=== PATIENT | female | born 1940 | race Caucasian/White ===

== ENCOUNTER 2020-11-28 18:51 | Observation (INO) | payer MEDICARE, SELFPAY ==
--- NOTE | ~2020-11-28 | XR_ITS ---
EXAMINATION: XR chest 2V DATE: 11/28/2020 19:23 INDICATION: Source of breath and chest pain. TECHNIQUE: frontal and lateral views of the chest were obtained. COMPARISON: Chest radiograph dated 11/18/2014 FINDINGS: The lungs remain clear with no focal airspace opacities, pulmonary edema, pleural effusion or pneumot horax. The cardiomediastinal silhouette is normal. Median sternotomy wires and mediastinal surgical c lips are seen, likely from prior coronary artery bypass grafting. There is also coronary artery bypas s grafting. Aortic valve replacement. Moderate thoracic spondylosis. IMPRESSION: 1. No acute cardiopulmonary disease. Reviewed, dictated and finalized at location A.
--- NOTE | 2020-11-28 18:58 | ECG_ITS ---
Measurements Intervals [place] Rate: 108 P: [place]: 0 QRS: -43 QRSD: 146 T: 72 QT: 370 QTc: 498 Interpretive Statements ATRIAL FIBRILLATION WITH RAPID VENTRICULAR RESPONSE LEFT AXIS DEVIATION LEFT BUNDLE BRANCH BLOCK ANTEROSEPTAL INFARCT OR DUE TO LBBB BASELINE WANDER- V3 ABNORMAL ECG Electronically Signed On 11-28-2020 20:14:29 CDT by Vinnie Frye D.O.
[2020-11-28 19:19] LABS: Basophils Percent Auto 0.5 % (0.2-1.2); Eosinophils Absolute Auto 0.2 K/mm3 (0-0.3); Hematocrit 39.3 % (37.0-47.0); Hemoglobin 12.6 g/dL (12.0-15.0); Immature Granulocyte Absolute 0.02 K/mm3 (0.00-0.031); Immature Granulocyte Percent A 0.3 % (0-0.5); Lymphocytes Absolute Auto 1.11 K/mm3 (0.9-3.2); Lymphocytes Percent Auto 19.3 % (18.3-44.2); Mean Corpuscular HGB Conc 32.1 g/dl (32-36); Mean Corpuscular Hemoglobin 28.5 pg (26-34); Mean Corpuscular Volume 88.9 fl (80-100); Mean Platelet Volume 9.5 fl (7.4-10.4); Monocytes Absolute Auto 0.9 K/mm3 (0.1-0.6); Monocytes Percent Auto 14.8 % (2.6-8.5); Neutrophils Absolute Auto 3.5 K/mm3 (1.3-6.7); Neutrophils Percent Auto 61.1 % (45.5-73.1); Platelet Count Result 261 k/mm3 (150-375); Red Blood Count 4.42 M/mm3 (4.2-5.4); White Blood Count 5.7 K/mm3 (4.5-10.0)
[2020-11-28 19:28] LABS: Anion Gap 8 mmol/L (8-16); Blood Urea Nitrogen 19 mg/dL (7-17); Carbon Dioxide 24 mmol/L (22-30); Chloride 104 mmol/L (98-107); Estimated Glomerular Filt Rate > 60; Glucose 136 mg/dL (65-110); Potassium 4.1 mmol/L (3.4-5.0); Sodium 136 mmol/L (137-145)
[2020-11-28 19:29] VITALS: BP 149/99; PULSE 97; RESP 18; TEMP 37; O2SAT 97
[2020-11-28 22:06] VITALS: BP 148/97; PULSE 102; RESP 20; O2SAT 100
[2020-11-29] VITALS (11 sets, daily range): BP systolic 136–178; BP diastolic 72–100; PULSE 65–82; RESP 16–27; TEMP 36.1–36.6; O2SAT 98–100; BMI 32.8
--- NOTE | 2020-11-29 00:06 | ECG_ITS ---
Measurements Intervals [place] Rate: 65 P: 27 [place]: 181 QRS: -29 QRSD: 146 T: 70 QT: 470 QTc: 492 Interpretive Statements SINUS RHYTHM POSSIBLE LEFT ATRIAL ENLARGEMENT LEFT BUNDLE BRANCH BLOCK ANTEROSEPTAL INFARCT OR DUE TO LBBB BASELINE ARTIFACT- I, III, AVL ABNORMAL ECG Electronically Signed On 11-29-2020 6:18:59 CDT by Vinnie Frye D.O.
--- NOTE | 2020-11-29 01:02 | ED.GENADULT ---
HPI - General Adult General Chief complaint: Shortness of Breath/Dyspnea Stated complaint: SOB, irregular HR, CP Time Seen by Provider: 11/28/20 23:56 History of Present Illness HPI narrative: Patient is a 80-year-old female presents the emergency department with chief complaint of palpitations. The patient reports that today she noticed that her heart was beating irregular and that she had a little bit of shortness of breath and some discomfort in her chest. The patient states that she has no prior history of A. fib reports she does have a extensive cardiac history and is has had bypass before in the past and a stent placement. Patient reports that she is feeling a little better right now and feels that her heart is improved on its rhythm. Patient does report that earlier this week she had a cough and has had a fever at home but has not had a fever for the last 2 days. She had a outpatient Covid test that was done yesterday and this is still pending at this time. Related Data Allergies Allergy/AdvReac Type Severity Reaction Status Date / Time clavulanic acid Allergy Mild Rash Verified 03/22/18 08:57 grapefruit Allergy Mild Rash Verified 03/22/18 08:57 wool Allergy Mild RASH Verified 03/22/18 08:57 amoxicillin Allergy Unknown Verified 02/09/16 10:35 Review of Systems Review of Systems: A 10 system review of systems was completed on the patient and is negative except for what is stated in the HPI. Nursing and ancillary documentation was reviewed. [facility] Family History Family History Other Family history of congenital heart disease Social History Social History Smoking status: Never smoker Alcohol intake: never Exam Narrative: GENERAL: Well-appearing, well-nourished, and in no acute distress. HEAD: Normocephalic, atraumatic. EYES: PERRLA and EOMI. ENT: Nares clear, no rhinorrhea or epistaxis. Mucous membranes moist. NECK: Supple. CHEST: Clear to auscultation. No respiratory distress. HEART: Regular rate and rhythm. No murmur heard. Normal peripheral pulses. ABDOMEN: Soft, nontender, nondistended, normal active bowel sounds. EXTREMITIES: Normal range of motion. No edema. SKIN: Warm, dry, no rash. NEURO: No focal deficits. Alert and oriented x3. PSYCH: Normal mood and affect. Course Course Emergency Course: EKG shows atrial fibrillation with a left bundle branch block and a rate of 108 Repeat EKG shows sinus rhythm with a rate of 65. There is a left bundle branch block Vital Signs Vital signs: Vital Signs Temperature 37.0 C 11/28/20 19:29 Pulse Rate 97 11/28/20 19:29 Respiratory Rate 18 11/28/20 19:29 Blood Pressure 149/99 H 11/28/20 19:29 Pulse Oximetry 97 11/28/20 19:29 Temperature 37.0 C 11/28/20 19:29 Pulse Rate 67 11/29/20 01:20 Respiratory Rate 27 H 11/29/20 01:20 Blood Pressure 157/83 H 11/29/20 01:20 Pulse Oximetry 100 11/29/20 01:20 Medical Decision Making Vital Signs Vital Signs: Vital Signs Temperature 37.0 C 11/28/20 19:29 Pulse Rate 97 11/28/20 19:29 Respiratory Rate 18 11/28/20 19:29 Blood Pressure 149/99 H 11/28/20 19:29 Pulse Oximetry 97 11/28/20 19:29 Temperature 37.0 C 11/28/20 19:29 Pulse Rate 67 11/29/20 01:20 Respiratory Rate 27 H 11/29/20 01:20 Blood Pressure 157/83 H 11/29/20 01:20 Pulse Oximetry 100 11/29/20 01:20 Lab Data Result diagrams: 11/28/20 19:12 11/28/20 19:12 Labs: Lab Results 11/28/20 11/28/20 11/28/20 Range/Units 19:10 19:10 19:12 WBC 5.7 (4.5-10.0) K/mm3 RBC 4.42 (4.2-5.4) M/mm3 Hgb 12.6 (12.0-15.0) g/dL Hct 39.3 (37.0-47.0) % MCV 88.9 (80-100) fl MCH 28.5 (26-34) pg MCHC 32.1 (32-36) g/dl RDW 13.0 (11.5-14.5) % Plt Count 261 (150-375) k/mm3 MPV 9.5 (7.4-10.4) fl Immature
[2020-11-29 01:23] LABS: INR 0.9; Prothrombin Time 12.1 Seconds (11.1-14.7)
[2020-11-29 01:24] LABS: Alanine Aminotransferase 41 U/L (4-35); Albumin Level 3.8 g/dL (3.5-5.1); Alkaline Phosphatase 133 U/L (38-126); Aspartate Amino Transferase 39 U/L (14-36); Bilirubin,Total 0.3 mg/dL (0.2-1.3); Partial Thromboplastin Time 35.7 SECONDS (22.3-36.8)
[2020-11-29 01:40] LABS: Troponin I 0.082 ng/mL (0.000-0.034)
[2020-11-29 01:46] LABS: NT Pro B Type Natriuretic Pept 733 pg/mL (5-100)
[2020-11-29 01:54] LABS: Troponin I 0.084 ng/mL (0.000-0.034)
[2020-11-29] MEDS: ASPIRIN 81 MG CHEWABLE TABLET 324 MG PO (02:24)
[2020-11-29] MEDS: ENOXAPARIN 80 MG/0.8 ML SYRINGE SUB-Q (02:24)
[2020-11-29 07:56] LABS: Troponin I 0.091 ng/mL (0.000-0.034)
--- NOTE | 2020-11-29 09:47 | PC.NURSE ---
This patient, Maricruz Peoples, was admitted to IMU Room 214-01. Patient/family oriented to hospital policies and general routines including ID bracelet, bed and alarms, visiting hours, pain management, procedures, bathroom and other care routines, personal items, smoking policy, room service/diet, and visiting hours. Information on how to activate the Rapid Response Team has been discussed. Patient/Family are encouraged to report perceived risks to care and to ask questions if they do not understand what they are told or what they should do.
--- NOTE | 2020-11-29 10:42 | PM.CNCAR ---
Assessment and Plan Assessment and plan (1) Atrial fibrillation: Qualifiers: Atrial fibrillation type: unspecified Qualified Code(s): I48.91 - Unspecified atrial fibrillation Code(s): I48.91 - Unspecified atrial fibrillation Status: Acute Assessment and Plan: New onset of atrial fibrillation with a mildly increased heart rate, probably fairly well controlled because she is already taking metoprolol. Likely due to age, history of heart disease and hypertension. Has converted to sinus rhythm spontaneously. Discussed with patient and her daughter, Nickie, atrial fibrillation, risk of recurrence, treatment, risk of cardioembolic events, anticoagulation, evaluation etc.. has atrial fibrillation and takes Xarelto Check TSH Okay for discharge today. Increase metoprolol from 50 mg b.i.d. to 75 mg b.i.d.. Okay to take an extra metoprolol 50 mg p.r.n. for palpitations. Change aspirin to Xarelto 20 mg daily. Will arrange for an outpatient echo, monitoring and office visit in the near future. Patient will call if she has further problems. (2) Elevated troponin: Code(s): R77.8 - Other specified abnormalities of plasma proteins Status: Acute Assessment and Plan: Mild flat troponin elevation due to history of CAD, and recent AFib RVR. Evaluation as above, no evidence of ACS or [place]. (3) CAD (coronary artery disease): Code(s): I25.10 - Atherosclerotic heart disease of [place] coronary artery without angina pectoris Status: Acute Assessment and Plan: CAD status post CABG, stable. (4) Aortic valve replaced: Code(s): Z95.2 - Presence of prosthetic heart valve Status: Acute Assessment and Plan: History of bioprosthetic aortic valve replacement, normal-sounding prosthetic valve. (5) Hypertension: Code(s): I10 - Essential (primary) hypertension Status: Acute Assessment and Plan: BP running a little high today. (6) Hyperlipidemia: Code(s): E78.5 - Hyperlipidemia, unspecified Status: Acute Assessment and Plan: Taking atorvastatin. (7) Fever: Code(s): R50.9 - Fever, unspecified Status: Acute Assessment and Plan: Recent fever and cough. COVID screen is still pending but patient is oxygenating well and does not look ill. History of Present Illness History of Present Illness Consult date/time: 11/29/20 10:42 Consult reason: atrial fibrillation Reason For Visit: Atrial fibrillation, chest pain, elevated troponin Narrative: Date of service 11/29/2020 Maricruz Peoples is a 80-year-old female whom I was asked to see at the request of the hospitalist for my advice and opinion regarding her new onset of atrial fibrillation in consultation. Ms Peoples was vacationing in or the [place] again in her CABG in 2 weeks ago. About a week ago she started having a cough, congestion and fevers up to 101.5? for 3 days. She did a home COVID test which was negative. Last night while sitting down for dinner she felt strange, noted her heart was beating, felt lightheaded, uncomfortable, a little short of breath. She came to the emergency room was found to have atrial fibrillation with a mildly increased heart rate response 102-108 beats per minute. After couple of hours, she spontaneously converted to sinus rhythm and has been feeling well since then. The patient is usually seen by for history of CAD and CABG in 2018 (MCKEON to the Left anterior descending, SVG to the OM and SVG to the PDA). At the time she had an aortic valve replacement because of aortic stenosis with a 21 mm magna pericardial tissue valve and septal myomectomy. She has a postop AFib which resolved. She has history of hypertension and hype
[2020-11-29] MEDS: hydroCHLOROthiazide 25 MG TABLET PO (13:23)
[2020-11-29] MEDS: METOPROLOL TARTRATE 25 MG TABLET 75 MG PO (13:23)
[2020-11-29] MEDS: LOSARTAN POTASSIUM 50 MG TABLET PO (13:23)
[2020-11-29] MEDS: RIVAROXABAN 20 MG TABLET PO (16:32)
--- NOTE | 2020-11-29 17:06 | PM.DS ---
DS: Admitting Diagnosis Admitting Diagnosis Chest Palpitations DS: Discharge Diagnosis Discharge Diagnosis (1) Atrial fibrillation: Qualifiers: Atrial fibrillation type: unspecified Qualified Code(s): I48.91 - Unspecified atrial fibrillation Code(s): I48.91 - Unspecified atrial fibrillation Status: Acute DS: Summary Hospital Course Reason for hospitalization: Heart palpitations Hospital Course: Patient is a 80-year-old female with past medical history CAD including CABG in 2018 and prior aortic valve replacement secondary to aortic stenosis which was complicated by postop AFib which resolved without therapy, presenting to hospital 11-28 for heart palpitations. Rhythm monitor showing AFib with heart rate in the 100s. Troponins elevated but flat 0.08, 0.08, 0.09. Seen by manufacturing process technician who recommended increasing metoprolol dose from 50 to 75 and giving additional prescription for 50 metoprolol p.r.n. when palpitations occur. While in house, was given Lovenox, which was changed to Xarelto upon discharge. Close follow-up with Cardiology and primary care within 1-2 weeks. Remaining medications unchanged, including statin HCTZ losartan. Discussed with patient in detail, she feels comfortable going home. Status at Discharge Functional status at discharge: independent ambulation Overall status at discharge: patient is progressing back to baseline Time Spent with Patient Time attestation: Total time spent providing and/or coordinating discharge services: 30 minutes Exam Const: General: no acute distress Limitations: no limitations and No altered mental status HENMT: Ears: TM's normal bilaterally Mouth: Yes moist mucous membranes and No dry mucous membranes Eyes: Sclera: sclerae normal and normal sclerae Neck: Neck: supple and No no JVD Resp: Effort & Inspection: normal respiratory effort Auscultation: clear to auscultation bilaterally, no crackles, no rales and lung sounds not diminished Cardio: Rate: abnormal rate Rhythm: abnormal rhythm and abnormal rhythm Heart sounds: Gallop heart sound present GI: Inspection: non-distended GI Palp: Yes Soft to palpation, No Firmness to palpation present (GI), No Tenderness to palpation present (GI) and No Guarding due to palpation present (GI) Percussion: Yes normal to percussion Auscultation: normal bowel sounds and bowels sounds normal Skin: General skin exam: normal color and no rashes or lesions noted Neuro: General: gait normal Motor exam (neuro): Normal motor muscle tone present throughout DS: Data Data Completed and Pending Labs on day of discharge: Labs from last 24 hours 11/29/20 11/29/20 11/29/20 06:31 06:26 03:12 WBC RBC Hgb Hct MCV MCH MCHC RDW Plt Count MPV Immature Gran % (Auto) Neut % (Auto) Lymph % (Auto) [place] % (Auto) Eos % (Auto) Baso % (Auto) Lymph # (Auto) [place] # (Auto) Eos # (Auto) Baso # (Auto) Abs Immat Gran (auto) Absolute Neuts (auto) Absolute Nucleated RBC Nucleated RBC % PT INR APTT Sodium Potassium Chloride Carbon Dioxide Anion Gap BUN Creatinine Estim Creat Clear Calc Estimated GFR Glucose Calcium Total Bilirubin Direct Bilirubin AST ALT Alkaline Phosphatase Troponin I 0.091 H* NT-Pro-B Natriuret Pep Total Protein Albumin TSH 4.630 SARS-CoV-2 RNA (RT-PCR) Pending 11/29/20 11/29/20 11/28/20 01:17 01:17 19:12 WBC RBC Hgb Hct MCV MCH MCHC RDW Plt Count MPV Immature Gran % (Auto) Neut % (Auto) Lymph % (Auto) [place] % (Auto) Eos % (Auto) Baso % (Auto) Lymph # (Auto) [place] # (Auto) Eos # (Auto) Baso # (Auto) Abs Immat Gran (auto) Absolute Neuts (auto) Absolute Nucleated RBC Nucleated RBC % PT INR APTT Sodium 136 L Potassium 4.1 Chloride 104
--- NOTE | 2020-11-29 17:28 | PM.IMHP ---
H&P: HPI History of Present Illness Date/Time: 11/29/20 11:28 Chief Complaint: Heart palpitations Narrative: Patient is a 80-year-old lady with CAD history presenting with approximately 1 week apart palpitations, history of CAD including CABG and aortic valve replacement. Has been feeling chest discomfort and palpitations for the last week or so, does not recall having symptoms of this severity in the past, no significant chest pain, or vomiting, and endorses some mild nausea. Past medical history: CAD prior history of atrial fibrillation Allergies: Clavulanic acid grapefruit wall of oxacillin Medications: Metoprolol, losartan, aspirin Family history: Underwear major medical problems running in family Social history: No significant drug alcohol or tobacco use Surgeries: History of CABG, and aortic valve replacement ER course: Found to be in atrial fibrillation, with tachycardia to 100s Troponin elevation to 0.08 Physicals exam otherwise unremarkable Review of Systems Review of Systems: All systems reviewed & are unremarkable except as noted in HPI and below Cardiovascular: Cardiovascular: Denies chest pain at rest, Denies chest pain with activity, Denies diaphoresis, Reports rapid heart rate and Reports irregular heart rhythm Respiratory: Respiratory: Denies hemoptysis, Denies excessive phlegm production, Denies pain on inspiration and Denies dyspnea Gastrointestinal: Gastrointestinal: Denies abdominal pain, Denies melena, Denies bloating, Denies hematochezia, Denies tenesmus, Denies change in stool character, Denies GI cramping and Denies dysphagia Musculoskeletal: Musculoskeletal: Denies abnormal gait, Denies back pain, Denies arthralgias, Denies joint swelling, Denies loss of height and Denies muscle cramps Neurologic: Denies behavioral changes, Denies headache(s) and Denies lack of coordination [facility] Past Medical History Medical History (Updated 11/29/20 @ 11:52 by Aliza Rodriguez MD) CAD (coronary artery disease) Hyperlipidemia Hypertension PAT (paroxysmal atrial tachycardia) Brief PSVT up to 20 beats noted in the past Surgical History Surgical History (Updated 11/29/20 @ 11:45 by Aliza Rodriguez MD) Aortic valve replaced 21 mm magna pericardial tissue valve with septal myomectomy by Dr. Sebastian and [facility] August 2017 Hx of CABG 10/[address] Sebastian I [facility]. MCKEON to the Left anterior descending, SVG to OM, SVG to PDA. Family History Family History (Updated 11/29/20 @ 11:46 by Aliza Rodriguez MD) Sibling Hx of CABG Diabetes mellitus Peripheral vascular disease Sibling Hx of CABG Mother Hypertension Heart disease cad Father Cardiac arrest Coded during open heart surgery after prior cardiac cath CAD (coronary artery disease) Other Family history of congenital heart disease Social History Social History (Updated 11/29/20 @ 11:47 by Aliza Rodriguez MD) Social History: , daughter a physician, going into family medicine. Smoking status: Never smoker Alcohol intake: never Substance use: never Spiritual care concerns: No Meds Home Medications and Allergies Home Medications Medication Instructions Recorded Confirmed Type Adults Multivitamin 1 tablet PO DAILY 11/29/20 11/29/20 History atorvastatin 80 mg PO HS 11/29/20 11/29/20 History calcium carbonate-vitamin D3 1 tablet PO DAILY 11/29/20 11/29/20 History hydrochlorothiazide 25 mg PO DAILY 11/29/20 11/29/20 History loperamide 1 mg PO DAILY 11/29/20 11/29/20 History losartan 50 mg PO DAILY 11/29/20 11/29/20 History metoprolol tartrate 50 mg PO DAILY PRN #30 tablet 11/29/20 Rx metoprolol tartrate 75 mg PO Q12HR #60 tablet 11/29/20 Rx rivaroxaban [Xarelto] 20 mg PO DAILY@1700 #60 tablet 11/29/20 Rx Allergies Allergy/AdvReac Type Severity Reaction Status Date / Time clavulanic acid Allergy Mild Rash Verified 11/29/20 09:37 grapefruit Allergy Mild R
[2020-11-29 17:52] LABS: SARS-CoV-2 RNA PCR Negative
== END 2020-11-29 18:05 | disposition home or self-care (01) ==
LOC: ANHED 11-29 02:04 → ANHIMU 11-29 17:05
PROVIDERS: Emergency Medicine; Internal Medicine Cardiovascular Disease; Admitting Provider Internal Medicine; Emergency Provider Emergency Medicine; PCP Family Medicine Adolescent Medicine; Visit Provider Internal Medicine
DX: I48.91 Unspecified atrial fibrillation (principal); R07.9 Chest pain, unspecified; R77.8 Other specified abnormalities of plasma proteins; R06.02 Shortness of breath; I25.10 Atherosclerotic heart disease of native coronary artery without angina pectoris; I10 Essential (primary) hypertension; E78.5 Hyperlipidemia, unspecified; R50.9 Fever, unspecified; I47.1 Supraventricular tachycardia; Z95.1 Presence of aortocoronary bypass graft; Z95.2 Presence of prosthetic heart valve; Z20.822 Contact with and (suspected) exposure to COVID-19
CPT/HCPCS: 36415; 71046; 80048; 80076; 83880; 84443; 84484; 85025; 85610; 85730; 93005; 96372; 99285; A9270; C9803; G0378; J1650; U0003; U0005

== ENCOUNTER 2020-12-16 01:02 | Day surgery (SDC) | payer MEDICARE, SELFPAY ==
[2020-12-15 12:37] VITALS: BMI 32.1
[2020-12-16] VITALS (16 sets, daily range): BP systolic 105–135; BP diastolic 60–94; PULSE 62–125; RESP 16–34; TEMP 35.9–36.6; O2SAT 91–98; BMI 32.9
--- NOTE | 2020-12-16 10:00 | ECG_ITS ---
Measurements Intervals [place] Rate: 109 P: [place]: 0 QRS: -54 QRSD: 145 T: 68 QT: 374 QTc: 504 Interpretive Statements ATRIAL FIBRILLATION WITH RAPID VENTRICULAR RESPONSE LEFT AXIS DEVIATION LEFT BUNDLE BRANCH BLOCK ABNORMAL ECG Electronically Signed On 12-16-2020 10:46:58 CDT by Vinnie Frye D.O.
--- NOTE | 2020-12-16 10:15 | SUR.PREOP ---
ARRIVES TO [facility] 4 VIA WC FOR SCHEDULED KATHARINA/CV W/ DR. GONZALEZ. DENIES PAIN ON ARRIVAL. REPORTS SOME MALLOY. ORIENTED TO ROOM, POC, PROCEDURE. QUESTIONS ANSWERED. PRE EKG COMPLETED: SHOWS AFIB. IV STARTED, LABS SENT, VS OBTAINED, CONSENT SIGNED. WILL CONTINUE TO MONITOR.
[2020-12-16 11:17] LABS: Anion Gap 8 mmol/L (8-16); Blood Urea Nitrogen 26 mg/dL (7-17); Calcium 9.4 mg/dL (8.4-10.2); Carbon Dioxide 27 mmol/L (22-30); Chloride 101 mmol/L (98-107); Estimated CRCL calculation 41 ml/min; Estimated Glomerular Filt Rate 53; Glucose 109 mg/dL (65-110); Potassium 3.8 mmol/L (3.4-5.0); Sodium 136 mmol/L (137-145)
--- NOTE | 2020-12-16 11:49 | WPDMODSED ---
Moderate Sedation Note-Pt Data Patient Data Diagnosis: atrial fibrillation Present Complaint: none Procedure to be performed/Plan: Transesophageal echocardiogram guided elective electrical cardioversion Allergies Allergy/AdvReac Type Severity Reaction Status Date / Time clavulanic acid Allergy Mild Rash Verified 12/16/20 11:34 grapefruit Allergy Mild Rash Verified 12/16/20 11:34 wool Allergy Mild RASH Verified 12/16/20 11:34 amoxicillin Allergy Unknown Unknown Verified 12/16/20 11:34 Home Medications Medication Instructions Recorded Confirmed Type Adults Multivitamin 1 tablet PO DAILY 11/29/20 12/15/20 History atorvastatin 80 mg PO HS 11/29/20 12/15/20 History calcium carbonate-vitamin D3 1 tablet PO EVERY OTHER DAY 11/29/20 12/15/20 History hydrochlorothiazide 25 mg PO DAILY 11/29/20 12/16/20 History loperamide 1 mg PO DAILY 11/29/20 12/16/20 History losartan 50 mg PO DAILY 11/29/20 12/16/20 History metoprolol tartrate 75 mg PO Q12HR #60 tablet 11/29/20 12/16/20 Rx rivaroxaban [Xarelto] 20 mg PO DAILY@1700 #60 tablet 11/29/20 12/16/20 Rx Current Medications: Active Medications Sodium Chloride (Normal Saline Iv) 1,000 mls @ 30 mls/hr IV CONT .Q24H ELEANOR Sedation/Anesthesia: No previous sedation/anesthesia problems (including family history). [facility] Past Medical History Medical History CAD (coronary artery disease) Hyperlipidemia Hypertension PAT (paroxysmal atrial tachycardia) Brief PSVT up to 20 beats noted in the past Surgical History Surgical History Aortic valve replaced 21 mm magna pericardial tissue valve with septal myomectomy by Dr. Sebastian and [facility] August 2017 Hx of CABG 10/[address] Sebastian I [facility]. MCKEON to the Left anterior descending, SVG to OM, SVG to PDA. Family History Family History Sibling Hx of CABG Diabetes mellitus Peripheral vascular disease Sibling Hx of CABG Mother Hypertension Heart disease cad Father Cardiac arrest Coded during open heart surgery after prior cardiac cath CAD (coronary artery disease) Other Family history of congenital heart disease Social History Social History Social History: , daughter a physician, going into family medicine. Smoking status: Never smoker Alcohol intake: never Substance use: never Spiritual care concerns: No Mod Sed Physical Exam Physical Exam Pre Procedural Exam: Normal: Appearance, Eyes, Ears, Nose, Neck (Supple, normal range of motion), Throat (Posterior hypopharynx clear, nonerythematous), Airway (No obstruction, normal anatomy), Lungs (Clear to auscultation bilaterally), Heart Size, Heart Rate, Neuro Exam, Abdomen, Liver, Extremities and Skin and Variation: Heart Rhythm (Irregular irregular) Hours since solid foods: 12 Hours since liquid intake: 12 Mallampati Classification: class III Internal Medicine - PN: Obj Da Vital Signs Vital Signs: Vital Signs - 24 hr 12/16/20 11:42 Pulse Rate 111 H Respiratory Rate 22 H Blood Pressure 116/82 Pulse Oximetry 98 Meds/Results Medications: Active Medications Generic Name Dose Route Start Last Admin Trade Name Freq PRN Reason Stop Dose Admin Sodium Chloride 1,000 mls @ 30 mls/hr 12/16/20 10:00 Normal Saline Iv IV CONT .Q24H ELEANOR Labs CBC & Chem 7: 12/16/20 11:00 Labs: Laboratory Results - last 24 hr 12/16/20 11:00 Sodium 136 L Potassium 3.8 Chloride 101 Carbon Dioxide 27 Anion Gap 8 BUN 26 H Creatinine 1.00 Estim Creat Clear Calc 41 Estimated GFR 53 L Glucose 109 Calcium 9.4 Magnesium 2.0 ASA Classification/Sedation ASA Classification/Sedation ASA Class: III Emergent: No Risks: Risks, benefits and alternatives ex
--- NOTE | 2020-12-16 11:50 | WPDHPUPDATE1 ---
History and Physical Update Update Date/Time: 12/16/20 11:50 History and Physical has been reviewed, including an updated exam of the patient. There are NO changes in the patient's condition. Risks, benefits, and alternatives have been discussed and questions answered. Patient agrees to proceed with procedure.
--- NOTE | 2020-12-16 12:29 | ECG_ITS ---
Measurements Intervals [place] Rate: 61 P: 47 NM: 190 QRS: -50 QRSD: 161 T: 57 QT: 492 QTc: 496 Interpretive Statements SINUS RHYTHM POSSIBLE LEFT ATRIAL ENLARGEMENT LEFT AXIS DEVIATION LEFT BUNDLE BRANCH BLOCK ABNORMAL ECG Electronically Signed On 12-16-2020 12:49:05 CDT by Vinnie DUVAL
--- NOTE | 2020-12-16 12:33 | WPDTECDV ---
KATHARINA with Cardioversion Date of procedure: 12/16/20 Procedure Type: Transesophageal echocardiogram guided elective electrical cardioversion Diagnosis: Atrial fibrillation with rapid ventricular response Indications: Atrial fibrillation with rapid ventricular response Description of Procedure: Brief history present illness: Patient is a pleasant 80-year-old female with a history of CAD status post CABG 2018 kiser to LAD, SVG to OM, SVG to PDA, 21 mm magna pericardial bioprosthetic valve in the aortic position, septal myomectomy with a history of postoperative atrial fibrillation more recently developed symptomatic atrial fibrillation with rapid ventricular response referred for transesophageal echocardiogram-guided elective electrical cardioversion in attempt to restore sinus rhythm. Procedure in detail: After verbal and written informed consent was obtained the patient risks, benefits, and alternatives explained in detail the patient agreed to proceed with the plan of care as outlined above. Patient was evaluated at bedside in the [facility] procedure room. On examination, neck was supple with normal range of motion, no restrictions to opening of the oral cavity, jaw angle and posterior hypopharynx was clear. Lungs were clear to auscultation. Patient was placed in appropriate 30 to 45 degree angle in a supine, slight left lateral decubitus position. Patient was monitored throughout the study with telemetry, oxygen saturation, end-tidal CO2 monitoring, blood pressure, heart rate, and respirations. Anterior and posterior defibrillator pads placed in the appropriate positions. The posterior hypopharynx was then locally anesthetized using repeated administration of Hurricaine spray as well as gargled viscous lidocaine. After local anesthetic of the posterior hypopharynx was achieved and the oral bite block placed, moderate sedation was administered. Through the oral bite block, the transesophageal echocardiogram probe was advanced into the posterior hypopharynx and into the esophagus easily and without complication. Multiple, multiplanar echocardiographic images were obtained in multiple standard re-projections. Pulsed wave, continuous-wave, and color-flow Doppler were utilized in conjunction with this study. At the conclusion of the study, the transesophageal echocardiogram probe was removed easily and without complication. Patient tolerated the procedure well without difficulty. Patient was in atrial fibrillation throughout the study. . Sedation: Moderate Sedation/Anesthesia administration: Patient denied previous intolerance or complications with anesthesia/sedation. Please see sedation note for documentation of the pre-procedure physical examination. As noted above, after adequate local anesthesia of the posterior hypopharynx was achieved, a total of 4 mg intravenous Versed and a total of 100 mcg intravenous Fentanyl in multiple divided doses was utilized for moderate sedation. Sedation start time was 1204 and end time was 1230 for a total of 26 minutes [id number] intra-procedure time. Sedation was administered by a qualified observer Roma Nevarez RN under my supervision with intra-procedure [id number] observation and management throughout the entirety of the procedure. There were no other issues or complications and patient tolerated the procedure well and sedation protocol well and I was present for the entirety Findings: FINDINGS: LEFT VENTRICLE: Normal size and systolic function with paradoxical septal wall motion and ejection fraction of 55%. mild left ventricular hypertrophy. RIGHT VENTRICLE: Upper limits normal size with systolic function within normal limits. LEFT ATRIUM: Moderate to severe enlargement RIGHT ATRIUM: Mild to moderate enlargement INTERATRIAL SEPTUM: Interatrial septum is anatomically normal without evidence of shunt with color-flow Doppler nor with injection of agitated saline. MITRAL VALVE: Mitral va
--- NOTE | 2020-12-16 13:51 | SUR.PHASEII ---
1345 D/C instructions reviewed with patient questions answered she verbalized understanding, IV d/c'd, cath intact, pressure applied, no bleeding noted, Pt transported via wheelchair to [facility] where her drove her home in a private vehicle.
== END 2020-12-16 13:50 | disposition home or self-care (01) ==
PROVIDERS: PCP Family Medicine Adolescent Medicine; Visit Provider Internal Medicine Cardiovascular Disease
PROC: (CPT 93312; principal; 2020-12-16 11:30)
PROC: 5A2204Z Restoration of Cardiac Rhythm, Single (ICD-10-PCS; 2020-12-16 11:30)
DX: I48.20 Chronic atrial fibrillation, unspecified (principal); I25.10 Atherosclerotic heart disease of native coronary artery without angina pectoris; Z95.1 Presence of aortocoronary bypass graft; I51.7 Cardiomegaly; I34.0 Nonrheumatic mitral (valve) insufficiency; R77.8 Other specified abnormalities of plasma proteins; Z95.2 Presence of prosthetic heart valve; R50.9 Fever, unspecified; R07.89 Other chest pain; I47.1 Supraventricular tachycardia; Z79.82 Long term (current) use of aspirin; I45.10 Unspecified right bundle-branch block
CPT/HCPCS: 36415; 80048; 83735; 92960; 93005; 93312; 93320; 93325; J2250; J3010; J7040

== ENCOUNTER 2020-12-17 16:32 | Observation (INO) | payer MEDICARE, SELFPAY ==
--- NOTE | ~2020-12-17 | CT_ITS ---
EXAMINATION: CT brain wo con DATE: 12/17/2020 17:11 INDICATION: Right leg numbness TECHNIQUE: Computed tomography (CT) of the head was performed without intravenous contrast. Sagittal and coronal reconstructions were performed. The mA was adjusted according to patient size. Iterative reconstruction technique was employed. The dose-length product was 605.33 mGy-cm. COMPARISON: None FINDINGS: No acute intracranial hemorrhage, acute infarction or abnormal extra axial fluid collection. Small ol d lacunar infarct at the body of the right caudate nucleus. There is mild scattered white matter hypo attenuation consistent with chronic small vessel ischemic disease. Symmetric prominence of the sulci consistent with mild age-appropriate diffuse cerebral volume loss. Ventricles are normal and symmetri c. No mass/mass effect. Changes of bilateral intraocular lens replacement. The orbits, paranasal sinu ses and mastoid air cells are normal. Intracranial calcified cerebral atherosclerosis is noted. IMPRESSION: 1. No acute intracranial process. 2. Old lacunar infarct at the right caudate nucleus. 3. Age-related changes including mild diffuse volume loss and mild scattered white matter hypoattenua tion consistent with chronic small vessel ischemic disease. Reviewed, dictated and finalized at location A. IMPRESSION: 1. No acute intracranial process. 2. Old lacunar infarct at the right caudate nucleus. 3. Age-related changes including mild diffuse volume loss and mild scattered wh ite matter hypoattenuation consistent with chronic small vessel ischemic diseas e.
--- NOTE | ~2020-12-17 | XR_ITS ---
EXAMINATION: XR chest 1V DATE: 12/17/2020 17:15 INDICATION: Stroke with right leg numbness and speech problems TECHNIQUE: frontal view of the chest was obtained. COMPARISON: Chest radiograph dated 11/28/2020 FINDINGS: Mild streaky atelectasis at the right costophrenic angle. No other airspace opacities, pulmonary mark a, pleural effusion or pneumothorax. The cardiomediastinal silhouette is within normal limits for AP technique. Median sternotomy wires and mediastinal surgical clips are seen, likely from prior coronar y artery bypass grafting. Coronary artery stenting. Aortic valve repair. Mitral annular calcification . Moderate thoracic spondylosis. IMPRESSION: 1. Mild atelectasis at the right costophrenic angle. No other acute cardiopulmonary disease. Reviewed, dictated and finalized at location A. IMPRESSION: 1. Mild atelectasis at the right costophrenic angle. No other acute cardiopulmo nary disease.
--- NOTE | ~2020-12-17 | US_ITS ---
EXAMINATION: US carotid duplex BI DATE: 12/18/2020 11:41 INDICATION: Possible stroke with right leg numbness and speech deficits TECHNIQUE: Grayscale, color Doppler, and pulsed Doppler images of the cervical carotid arteries were obtained. The degree of vessel stenosis is placed in one of the following categories: normal, <50%, 5 0-69%, >=70% but less than near-occlusion, near-occlusion, or total occlusion. Note that percent sten osis relative to normal distal artery lumen diameter is indirectly measured from velocity measurement s as described by Edwin, et al. Radiology 2003; [id number]. COMPARISON: None. FINDINGS: RIGHT: The right common carotid artery (CCA) peak systolic velocity (PSV) is 65 cm/s. The right internal car otid artery (ICA) PSV is 59 cm/s. The right ICA end-diastolic velocity (EDV) is 9 cm/s. The right ICA /CCA PSV ratio is 1.0. Grayscale and color Doppler images yield an estimate of <50% diameter reductio n from plaque in the ICA. The external carotid artery (ECA) PSV is 118 cm/s. There is antegrade flow in the right vertebral artery. LEFT: The left CCA PSV is 87 cm/s. The left ICA PSV is 71 cm/s. The left ICA EDV is 18 cm/s. The left ICA/C CA PSV ratio is 0.9. Grayscale and color Doppler images yield an estimate of <50% diameter reduction from plaque in the ICA. The ECA PSV is 86 cm/s. There is antegrade flow in the left vertebral artery. IMPRESSION: 1. <50% stenosis in the right internal carotid artery. 2. <50% stenosis in the left internal carotid artery. Reviewed, dictated and finalized at location A.
--- NOTE | ~2020-12-17 | MR_ITS ---
EXAMINATION: MR brain/brain stem wo/w con EXAM DATE: 12/18/2020 09:43 INDICATION: right leg numbness . Stroke. TECHNIQUE: Magnetic resonance imaging (MRI) of the brain/brain stem obtained without contrast. Sagit ray T1, axial diffusion, gradient echo (T2*), T1, T2, FLAIR sequences obtained. Patient was then inj ected with 17 cc intravenous Multihance contrast. Axial and coronal postcontrast T1 weighted sequence s obtained. Correlation is made to head CT from 12/17/2020. FINDINGS: There is punctate acute cortical infarction in the left frontal lobe, and a slightly larger acute cortical infarction the left parietal lobe, motor and sensory strips respectively. No larger t erritorial infarctions. There is punctate old right periventricular infarction. There is no acute hem orrhage seen on the T2*, a hemosiderin sensitive sequence. No intraparenchymal brain mass lesion. Th ere is mild periventricular and subcortical T2/FLAIR signal hyperintensity, nonspecific but probably related to small vessel ischemic disease (microangiopathy). There is mild prominence of the sulci a nd ventricles related to cerebral atrophy. There are no extra-axial collections. Flow voids are se en in the cerebral arteries on the T2-weighted sequences consistent with their expected patency. Pat ient has had bilateral ocular lens surgery. Soft tissue is unremarkable. IMPRESSION: 1. Two small left cortical acute infarctions. 2. Chronic age related findings. Reviewed, dictated and finalized at location B.
[2020-12-17 16:47] VITALS: BP 141/78; PULSE 65; RESP 16; TEMP 36.7; O2SAT 96
--- NOTE | 2020-12-17 16:53 | ECG_ITS ---
Measurements Intervals [place] Rate: 66 P: 45 RI: 186 QRS: -64 QRSD: 152 T: 57 QT: 466 QTc: 490 Interpretive Statements SINUS RHYTHM POSSIBLE LEFT ATRIAL ENLARGEMENT LEFT BUNDLE BRANCH BLOCK ABNORMAL ECG Electronically Signed On 12-17-2020 19:04:12 CDT by Vinnie Frye D.O.
[2020-12-17 17:31] LABS: Basophils Percent Auto 0.4 % (0.2-1.2); Eosinophils Absolute Auto 0.2 K/mm3 (0-0.3); Hemoglobin 12.4 g/dL (12.0-15.0); Immature Granulocyte Absolute 0.02 K/mm3 (0.00-0.031); Immature Granulocyte Percent A 0.2 % (0-0.5); Lymphocytes Percent Auto 11.2 % (18.3-44.2); Mean Corpuscular HGB Conc 31.8 g/dl (32-36); Mean Corpuscular Volume 91.3 fl (80-100); Mean Platelet Volume 10.7 fl (7.4-10.4); Monocytes Absolute Auto 0.9 K/mm3 (0.1-0.6); Monocytes Percent Auto 10.8 % (2.6-8.5); Neutrophils Absolute Auto 6.1 K/mm3 (1.3-6.7); Neutrophils Percent Auto 75.4 % (45.5-73.1); Platelet Count Result 152 k/mm3 (150-375); Red Blood Count 4.27 M/mm3 (4.2-5.4); Red Cell Distribution Width 15.4 % (11.5-14.5); White Blood Count 8.1 K/mm3 (4.5-10.0)
[2020-12-17 17:43] LABS: Anion Gap 8 mmol/L (8-16); Blood Urea Nitrogen 26 mg/dL (7-17); Carbon Dioxide 25 mmol/L (22-30); Chloride 106 mmol/L (98-107); Estimated CRCL calculation 50 ml/min; Estimated Glomerular Filt Rate > 60; Glucose 109 mg/dL (65-110); Potassium 3.9 mmol/L (3.4-5.0); Sodium 139 mmol/L (137-145)
[2020-12-17 17:46] LABS: INR 1.4; Prothrombin Time 16.5 Seconds (11.1-14.7)
[2020-12-17 17:47] LABS: Partial Thromboplastin Time 34.3 SECONDS (22.3-36.8)
[2020-12-17 17:55] LABS: Troponin I < 0.012 ng/mL (0.000-0.034)
[2020-12-17 19:03] VITALS: BP 129/62; PULSE 71; RESP 22; O2SAT 96
--- NOTE | 2020-12-17 19:36 | ED.NEUROSD ---
HPI - Neuro Symptoms/Deficit General Chief Complaint: Neuro Symptoms/Deficit Stated Complaint: right leg numbness/reynaldo and cardioversion yesterday Time Seen by Provider: 12/17/20 19:06 Source: patient, RN notes reviewed and old records reviewed Mode of arrival: ambulatory Limitations: no limitations History of Present Illness HPI Narrative: This is a 80 year old female with history of atrial fibrillation who presents for evaluation of right leg numbness starting this morning at 8 am. 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 Osorio. She is currently on xarelto but she has not taken her dose today. She reports her right leg felt like it is not there and it is numb. She denies focal weakness. She denies right arm weakness, headache, blurred vision, back pain or leg pain. She thinks her symptom have improved. She denies history of TIA or stroke in the past. Related Data Home Medications Medication Instructions Recorded Confirmed Adults Multivitamin 1 tablet PO DAILY 11/29/20 12/17/20 atorvastatin 80 mg PO HS 11/29/20 12/17/20 calcium carbonate-vitamin D3 1 tablet PO EVERY OTHER DAY 11/29/20 12/17/20 hydrochlorothiazide 25 mg PO DAILY 11/29/20 12/17/20 loperamide 1 mg PO DAILY 11/29/20 12/17/20 losartan 25 mg PO DAILY 11/29/20 12/17/20 Allergies Allergy/AdvReac Type Severity Reaction Status Date / Time clavulanic acid Allergy Mild Rash Verified 12/16/20 11:34 grapefruit Allergy Mild Rash Verified 12/16/20 11:34 wool Allergy Mild RASH Verified 12/16/20 11:34 amoxicillin Allergy Unknown Unknown Verified 12/16/20 11:34 Review of Systems Review of Systems: All systems reviewed & are unremarkable except as noted in HPI and below PMFSH Past Medical History Medical History (Updated 12/17/20 @ 19:54 by Claire Núñez MD) CAD (coronary artery disease) Hyperlipidemia Hypertension PAT (paroxysmal atrial tachycardia) Brief PSVT up to 20 beats noted in the past Surgical History Surgical History (Updated 12/18/20 @ 01:50 by Yu Smith MD) Aortic valve replaced 21 mm magna pericardial tissue valve with septal myomectomy by Dr. Sebastian and [facility] August 2017 Hx of CABG 10/[address] Romulo Youngblood [facility]. MCKEON to the Left anterior descending, SVG to OM, SVG to PDA. Family History Family History Sibling Hx of CABG Diabetes mellitus Peripheral vascular disease Sibling Hx of CABG Mother Hypertension Heart disease cad Father Cardiac arrest Coded during open heart surgery after prior cardiac cath CAD (coronary artery disease) Other Family history of congenital heart disease Social History Social History Social History: , daughter a physician, going into family medicine. Smoking status: Never smoker Alcohol intake: never Substance use: never Spiritual care concerns: No Exam Const: General: no acute distress and alert Orientation/consciousness: patient oriented x3 HENMT: Ears: TM's normal bilaterally Eyes: Pupils: Equal, round and reactive pupils present EOM: EOMs intact bilaterally Resp: Effort & Inspection: normal respiratory effort and no retractions Auscultation: clear to auscultation bilaterally Cardio: Rate: regular rate Rhythm: regular rhythm Heart sounds: no murmurs GI: GI Palp: Yes Soft to palpation, No Tenderness to palpation present (GI) and No Guarding due to palpation present (GI) Auscultation: normal bowel sounds Skin: General skin exam: normal color Rashes: no rashes Neuro: General: patient oriented x3, moves all extremities, no meningeal signs, no focal motor deficits and CN's II-XI intact bilaterally Cranial nerves: Yes CN's II-XII intact bilaterally, Yes Bilaterally intact EOM present, Yes facial symmetry and Yes Midline tongue presen
[2020-12-17 20:00] VITALS: PULSE 82
[2020-12-17] MEDS: ASPIRIN 81 MG CHEWABLE TABLET 324 MG PO (20:01)
--- NOTE | 2020-12-17 20:35 | PM.IMHP ---
H&P: HPI History of Present Illness Date/Time: 12/17/20 20:35 Chief Complaint: Right leg numbness Narrative: This is a 80-year-old female with past medical history significant for atrial fibrillation, hypertension, dyslipidemia, on chronic anticoagulation, coronary artery disease status post stent placement. Patient just underwent electrical cardioversion and trans esophageal echocardiogram due to atrial fibrillation with rapid ventricular response and patient being a very symptomatic postprocedure patient was too well and was discharged she comes today to the emergency room after she got up in the morning and felt her right leg felt heavy and numbed however no disturbance with her gait, no focal weakness, no lightheadedness, no dizziness, no vision changes, no headache, no speech disturbance, no cough, no sputum production, no shortness of breath, no palpitations, no chest pain, patient was brought to the emergency for further assessment and evaluation. However according to daughter she patient has been having a dry cough and pedal edema. Preliminary workup has been essentially nonrevealing at the time of my visit patient stated that she had almost 100% recovery of the sensation of the right lower extreme daughter was visiting and was at bedside. Patient has been placed in observation status Review of Systems Review of Systems: Right lower extremity numbness. Constitutional: Constitutional: Denies chills, Denies fatigue, Denies fever(s), Denies malaise and Denies weakness Eyes: Eyes: Denies change in vision ENT: Denies dysphagia, Denies vertigo, Denies nasal congestion, Denies nasal discharge, Denies nasal obstruction, Denies neck pain and Denies odynophagia Cardiovascular: Cardiovascular: Denies chest pain, Denies syncope, Denies lightheadedness, Denies radiating jaw, neck or arm pain, Denies palpitations, Denies dyspnea, Denies dyspnea on exertion and Denies orthopnea Comments: Elective electrical cardioversion and transesophageal echocardiogram Respiratory: Respiratory: Denies cough, Denies dyspnea and Denies wheezing Gastrointestinal: Gastrointestinal: Denies dyspepsia, Denies heartburn, Denies diarrhea, Denies nausea and Denies vomiting Genitourinary: Genitourinary: Reports no additional female genitourinary complaints Musculoskeletal: Musculoskeletal: Reports no additional musculoskeletal complaints Integumentary/Breasts: Skin/Breast: Reports system reviewed and no additional complaints, except as docu Neurologic: Reports Sensory deficit (Neuro) (Right lower extremity) Psychiatric: Psychiatric: Reports no additional psychiatric complaints Endocrine: Endocrine: Reports no additional endocrine complaints Hematologic/Lymphatic: Hematologic/Lymphatic: Reports no additional hematologic/lymphatic complaints Allergic/Immunologic: Allergic/Immunologic: Reports no additional allergic/immunologic complaints [facility] Past Medical History Medical History (Updated 12/17/20 @ 19:54 by Claire Núñez MD) CAD (coronary artery disease) Hyperlipidemia Hypertension PAT (paroxysmal atrial tachycardia) Brief PSVT up to 20 beats noted in the past Surgical History Surgical History (Updated 12/18/20 @ 01:50 by Yu Smith MD) Aortic valve replaced 21 mm magna pericardial tissue valve with septal myomectomy by Dr. Sebastian and [facility] August 2017 Hx of CABG 10/[address] Sebastian I [facility]. MCKEON to the Left anterior descending, SVG to OM, SVG to PDA. Family History Family History Sibling Hx of CABG Diabetes mellitus Peripheral vascular disease Sibling Hx of CABG Mother Hypertension Heart disease cad Father Cardiac arrest Coded during open heart surgery after prior cardiac cath CAD (coronary artery disease) Other Family history of congenital heart disease Social History Social History (Reviewed 12/16/20 @ 11:49
[2020-12-17 21:00] VITALS: BP 137/79; PULSE 66; RESP 25; O2SAT 94
--- NOTE | 2020-12-17 21:30 | ADMGEN ---
This patient, Maricruz Peoples, was admitted to Medical Room 252-01. Patient/family oriented to hospital policies and general routines including ID bracelet, bed and alarms, visiting hours, pain management, procedures, bathroom and other care routines, personal items, smoking policy, room service/diet, and visiting hours. Information on how to activate the Rapid Response Team has been discussed. Patient/Family are encouraged to report perceived risks to care and to ask questions if they do not understand what they are told or what they should do.
[2020-12-17 21:35] VITALS: BP 150/76; PULSE 71; RESP 20; TEMP 36.1; O2SAT 97; BMI 33.6
[2020-12-18] VITALS (7 sets, daily range): BP systolic 131–141; BP diastolic 68–73; PULSE 66–86; RESP 20; TEMP 36.1–36.7; O2SAT 97
[2020-12-18] MEDS: LOSARTAN POTASSIUM 25 MG TABLET PO (09:02)
[2020-12-18] MEDS: METOPROLOL TARTRATE 25 MG TABLET 75 MG PO (09:02)
[2020-12-18] MEDS: hydroCHLOROthiazide 25 MG TABLET PO (09:02)
[2020-12-18] MEDS: MULTIVITAMINS /C LUTEIN (CENTRUM SILVER) TABLET *BKC 1 TAB PO (09:02)
--- NOTE | 2020-12-18 12:01 | WPDNEURCNPN ---
Assessment and Plan Additional Plan TIA patient was advised to continue anticoagulation therapy as such at this stage she also asks the question about the visual migraine which were very distinctly with clear not consistent with the TIA but again she is taking the anticoagulation therapy and the treatment will be continued as such if any further question arises please do not hesitate to contact me Consult date: 12/18/20 Time Seen: 10:30 HPI: Maricruz Peoples is a 80 year old female admitted to the hospital for the complaints of right lower extremity numbness in addition to the ongoing history of 1. Atrial fibrillation 2. Hypertension 3. Dyslipidemia 4. Chronic anticoagulation therapy 5. Coronary artery disease with history of placement of the stent and 6. Recent cardioversion and transesophageal echocardiogram for atrial fibrillation with rapid ventricular response. Patient was discharged to home postoperatively but she was extremely well but when she got up in the morning she felt her right lower extremity was heavy and numb but she was able to walk and had no focal weakness. Additionally she was noted to have dry cough and pedal edema by the daughter. That time she was seen by the physician she was almost 100% back to normal. Does carry the diagnosis of hypertension in addition to paroxysmal atrial fibrillation as mentioned above and has undergone aortic valve replacement in addition to the CABG, is not a smoker not a drinker and at the time of admission she was taking her regular medications which included atorvastatin 80 mg at night calcium carbonate with vitamin D3 1 tablet every other day hydrochlorothiazide 25 mg daily loperamide 1 mg day losartan 25 mg daily metoprolol 75 mg every 12 hours and rivaroxaban 20 mg daily evaluation up until now documented MRI of the brain with 2 small left cortical acute infarction in addition to chronic age-related findings negative x-ray chest negative CT scan of the head for bleed and fairly normal routine blood studies which COVID SARS-CoV-2 negative Review of Systems Review of Systems: All systems reviewed & are unremarkable except as noted in HPI and below [facility] Past Medical History Medical History CAD (coronary artery disease) Hyperlipidemia Hypertension PAT (paroxysmal atrial tachycardia) Brief PSVT up to 20 beats noted in the past Surgical History Surgical History Aortic valve replaced 21 mm magna pericardial tissue valve with septal myomectomy by Dr. Sebastian and [facility] August 2017 Hx of CABG 10/[address] Romulo Youngblood [facility]. MCKEON to the Left anterior descending, SVG to OM, SVG to PDA. Family History Family History Sibling Hx of CABG Diabetes mellitus Peripheral vascular disease Sibling Hx of CABG Mother Hypertension Heart disease cad Father Cardiac arrest Coded during open heart surgery after prior cardiac cath CAD (coronary artery disease) Other Family history of congenital heart disease Social History Social History Social History: , daughter a physician, going into family medicine. Smoking status: Never smoker Alcohol intake: never Substance use: never Spiritual care concerns: No Meds Home Medications and Allergies Home Medications Medication Instructions Recorded Confirmed Type Adults Multivitamin 1 tablet PO DAILY 11/29/20 12/17/20 History atorvastatin 80 mg PO HS 11/29/20 12/17/20 History calcium carbonate-vitamin D3 1 tablet PO EVERY OTHER DAY 11/29/20 12/17/20 History hydrochlorothiazide 25 mg PO DAILY 11/29/20 12/17/20 History loperamide 1 mg PO DAILY 11/29/20 12/17/20 History losartan 25 mg PO DAILY 11/29/20 12/17/20 History metoprolol tartrate 75 mg PO Q12HR #60 tablet 11/29/20 12/17/20 Rx shelly
[2020-12-18] MEDS: LOPERAMIDE HCL 2 MG CAPSULE PO (13:22)
[2020-12-18] MEDS: RIVAROXABAN 20 MG TABLET PO (13:22)
--- NOTE | 2020-12-18 13:50 | PM.DS ---
DS: Admitting Diagnosis Admitting Diagnosis Chief Complaint: Right leg numbness DS: Discharge Diagnosis Discharge Diagnosis (1) Paresthesia of right lower extremity: Code(s): R20.2 - Paresthesia of skin Status: Acute Assessment and Plan: Patient has been placed in observation MRI of the brain pneumonia Carotid Doppler Patient had transesophageal echocardiogram the day before with electrical cardioversion. (2) CAD (coronary artery disease): Code(s): I25.10 - Atherosclerotic heart disease of [place] coronary artery without angina pectoris Status: Acute Assessment and Plan: Status post CABG Continue to monitor Follows up in the outpatient setting (3) Atrial fibrillation: Qualifiers: Atrial fibrillation type: unspecified Qualified Code(s): I48.91 - Unspecified atrial fibrillation Code(s): I48.91 - Unspecified atrial fibrillation Status: Acute Assessment and Plan: Status post electrical cardioversion (4) Hx of CABG: Code(s): Z95.1 - Presence of aortocoronary bypass graft Status: Inactive Assessment and Plan: Continue to monitor Continue losartan ,continue metoprolol , continue atorvastatin. Chest pain free (5) Hyperlipidemia: Code(s): E78.5 - Hyperlipidemia, unspecified Status: Acute Assessment and Plan: CONTINUE STATIN (6) Hypertension: Code(s): I10 - Essential (primary) hypertension Status: Acute Assessment and Plan: CONTINUE HOME MEDS CONTINUE TO MONITOR (7) Aortic valve replaced: Code(s): Z95.2 - Presence of prosthetic heart valve Status: Acute Assessment and Plan: UNCHANGED DS: Summary Hospital Course Reason for hospitalization: Chief Complaint: Right leg numbness Narrative: This is a 80-year-old female with past medical history significant for atrial fibrillation, hypertension, dyslipidemia, on chronic anticoagulation, coronary artery disease status post stent placement. Patient just underwent electrical cardioversion and trans esophageal echocardiogram due to atrial fibrillation with rapid ventricular response and patient being a very symptomatic postprocedure patient was too well and was discharged she comes today to the emergency room after she got up in the morning and felt her right leg felt heavy and numbed however no disturbance with her gait, no focal weakness, no lightheadedness, no dizziness, no vision changes, no headache, no speech disturbance, no cough, no sputum production, no shortness of breath, no palpitations, no chest pain, patient was brought to the emergency for further assessment and evaluation. However according to daughter she patient has been having a dry cough and pedal edema. Preliminary workup has been essentially nonrevealing at the time of my visit patient stated that she had almost 100% recovery of the sensation of the right lower extreme daughter was visiting and was at bedside. Patient has been placed in observation status Hospital Course: This is a 80-year-old female with past medical history significant for atrial fibrillation, hypertension, dyslipidemia, on chronic anticoagulation, coronary artery disease status post stent placement. Patient just underwent electrical cardioversion and trans esophageal echocardiogram due to atrial fibrillation with rapid ventricular response and patient being a very symptomatic postprocedure patient was too well and was discharged she comes today to the emergency room after she got up in the morning and felt her right leg felt heavy and numbed however no disturbance with her gait, Ct scan of head is negative for any acute injury, MRI shower two small acute infarct, her symptoms have resolved, most likely TIA, seen by Dr. Desouza recommended to continue to anticoagulation. Status at Discharge Functional status at discharge: uses cane/walker Overall status at discharge: patient is back to baseline Time Spent with
== END 2020-12-18 15:45 | disposition home or self-care (01) ==
LOC: ANHED 19:54 → ANH2MED 22:24
PROVIDERS: Family Medicine; Admitting Provider Internal Medicine; Emergency Provider General Practice; PCP Family Medicine Adolescent Medicine; Visit Provider Family Medicine
DX: R20.2 Paresthesia of skin (principal); I10 Essential (primary) hypertension; I25.10 Atherosclerotic heart disease of native coronary artery without angina pectoris; I48.91 Unspecified atrial fibrillation; E78.5 Hyperlipidemia, unspecified; I47.1 Supraventricular tachycardia; Z95.1 Presence of aortocoronary bypass graft; Z95.2 Presence of prosthetic heart valve; Z79.01 Long term (current) use of anticoagulants; Z95.5 Presence of coronary angioplasty implant and graft
CPT/HCPCS: 36415; 70450; 70553; 71045; 80048; 84484; 85025; 85610; 85730; 93005; 93880; 99285; A9270; A9577; G0378

== ENCOUNTER 2022-10-13 12:39 | Outpatient (CLI) | payer MEDICARE, SELFPAY ==
--- NOTE | ~2022-10-13 | US_ITS ---
EXAMINATION: US carotid duplex BI DATE: 10/13/2022 13:14 INDICATION: Dizziness. Carotid atherosclerosis. TECHNIQUE: Grayscale, color Doppler, and pulsed Doppler images of the cervical carotid arteries were obtained. The degree of vessel stenosis is placed in one of the following categories: normal, <50%, 5 0-69%, >=70% but less than near-occlusion, near-occlusion, or total occlusion. Note that percent sten osis relative to normal distal artery lumen diameter is indirectly measured from velocity measurement s as described by Edwin, et al. Radiology 2003; 229:340-346. COMPARISON: None. FINDINGS: RIGHT: The right common carotid artery (CCA) peak systolic velocity (PSV) is 76 cm/s. The right internal car otid artery (ICA) PSV is 56 cm/s. The right ICA end-diastolic velocity (EDV) is 13 cm/s. The right IC A/CCA PSV ratio is 0.7. Grayscale and color Doppler images yield an estimate of <50% diameter reducti on from plaque in the ICA. The external carotid artery (ECA) PSV is 95 cm/s. There is antegrade flow in the right vertebral artery. LEFT: The left CCA PSV is 91 cm/s. The left ICA PSV is 62 cm/s. The left ICA EDV is 21 cm/s. The left ICA/C CA PSV ratio is 0.7. Grayscale and color Doppler images yield an estimate of <50% diameter reduction from plaque in the ICA. The ECA PSV is 77 cm/s. There is antegrade flow in the left vertebral artery. IMPRESSION: 1. <50% stenosis in the right internal carotid artery. 2. <50% stenosis in the left internal carotid artery. 3. Cardiac arrhythmia is present. Correlate with EKG. Reviewed, dictated and finalized at location A.
== END 2022-10-13 12:40 | disposition home or self-care (01) ==
PROVIDERS: PCP Family Medicine Adolescent Medicine; Visit Provider Internal Medicine Cardiovascular Disease
DX: I65.23 Occlusion and stenosis of bilateral carotid arteries (principal)
CPT/HCPCS: 93880

== ENCOUNTER → 2023-03-04 09:07 | Outpatient (CLI) | payer MEDICARE, SELFPAY ==
--- NOTE | ~2023-03-04 | XR_ITS ---
XR thoracic spine 2V DATE: 03/04/2023 09:35 INDICATION: Thoracic spine pain TECHNIQUE: AP, lateral, swimmer views COMPARISON: 11/28/2020 2 view chest 10/26/2017 CTA chest FINDINGS: There is osteopenia. Diffuse idiopathic skeletal hyperostosis of the thoracic spine. There is degener ative disc disease and prominent spurring in the included upper lumbar spine. No fracture or dislocation or bone destruction of the thoracic spine is detected. Severe degenerative disease at C6-7. No thoracic paraspinal soft tissue thickening. Status post sternotomy and coronary bypass graft surgery. Coronary artery stent. Aortic valve replace ment. Mitral annulus calcification. Tortuous calcified splenic artery in left upper quadrant. IMPRESSION: Diffuse idiopathic skeletal hyperostosis of the thoracic spine Severe degenerative disc disease at C6-7 Reviewed, dictated and finalized at location B. GER OF INTERNAL
== END ==
PROVIDERS: PCP Family Medicine Adolescent Medicine; Visit Provider Family Medicine Adolescent Medicine
DX: M50.323 Other cervical disc degeneration at C6-C7 level (principal); M48.14 Ankylosing hyperostosis [Forestier], thoracic region; M54.6 Pain in thoracic spine
CPT/HCPCS: 72070

== ENCOUNTER 2023-03-08 09:50 | Emergency (ER) | payer MEDICARE, SELFPAY ==
--- NOTE | ~2023-03-08 | CT_ITS ---
EXAMINATION: CT abdomen pelvis w con DATE: 03/08/2023 12:19 INDICATION: Right flank pain. Right upper quadrant abdominal pain. TECHNIQUE: Computed tomography (CT) of the abdomen and pelvis was performed with 100 mL Omnipaque 350 intravenous contrast. Automated exposure control and iterative reconstruction technique were employe d. The dose-length product was 938.38 mGy-cm. COMPARISON: None. FINDINGS: The visualized portions of the lung bases demonstrate mild atelectasis. No pleural effusion . Cardiomegaly is noted. No pericardial effusion. The liver, gallbladder, spleen, pancreas, and adren al glands are normal. There are cysts in the kidneys measuring up to 18 mm on the left. There are no dilated loops of bowel. There are no pathologically enlarged lymph nodes. There is no free intraperit lazcano fluid. The appendix is normal. There is calcified atherosclerosis of the aorta and many of the other arteries. There is a total left hip arthroplasty. There is severe lower lumbar spondylosis. IMPRESSION: 1. No etiology for the patient's symptoms. Reviewed, dictated and finalized at location E. ARCHITECT
[2023-03-08 09:57] VITALS: BP 168/80; PULSE 64; RESP 16; TEMP 36.2; O2SAT 97
--- NOTE | 2023-03-08 11:10 | ED.BACK ---
HPI - Back Pain/Injury General Chief Complaint: Back Pain/Injury Stated Complaint: MID BACK PAIN Time Seen by Provider: 03/08/23 10:44 Source: patient Mode of arrival: ambulatory Limitations: no limitations History of Present Illness HPI Narrative: Patient is an 83-year-old female who presents to ED with report of mid/ right-sided back pain. Patient reports pain began on Tuesday. She denies any aggravating factors or strenuous activity. She states the pain begins in her right abdomen/right lateral abdomen and radiates around to her back like a band. She was seen by her primary care doctor and prescribed Callaway, negative thoracic spine x-rays. She has been taking this at home with ibuprofen and 1 dose of methocarbamol without relief. She states the pain is intermittent, feels like spasms. Worse with movement. She reports nausea associated with the pain, denies vomiting. Denies fevers, dysuria, hematuria, diarrhea, rectal bleeding, melena. Patient last took Callaway 730am this morning. Related Data Home Medications Medication Instructions Recorded Confirmed atorvastatin 80 mg tablet 80 mg PO HS 11/29/20 03/04/23 multivit with minerals-iron 18 1 tablet PO DAILY 11/29/20 03/04/23 mg-folic ac 400 mcg-vit K 25 mcg tablet (Adults Multivitamin) aspirin 81 mg tablet,delayed 81 mg PO DAILY 05/04/21 03/04/23 release loperamide 2 mg capsule 1 mg PO DAILY 05/13/22 03/04/23 rivaroxaban 20 mg tablet (Xarelto) 20 mg PO DAILY@1700 05/13/22 03/04/23 Allergies Allergy/AdvReac Type Severity Reaction Status Date / Time clavulanic acid Allergy Mild Rash Verified 03/08/23 11:04 grapefruit Allergy Mild Rash Verified 03/08/23 11:04 wool Allergy Mild RASH Verified 03/08/23 11:04 amoxicillin Allergy Unknown Unknown Verified 03/08/23 11:04 Review of Systems Review of Systems: CONSTITUTIONAL: Denies fever, chills, or sweats. CARDIOVASCULAR: Denies chest pain. RESPIRATORY: Denies dyspnea. GASTROINTESTINAL: See HPI. GENITOURINARY: Denies dysuria or hematuria. SKIN: Denies rash or itching. MUSCULOSKELETAL: See HPI. All systems reviewed & are unremarkable except as noted in HPI and below PMFSH Past Medical History Medical History CAD (coronary artery disease) Hyperlipidemia Hypertension Overactive bladder PAT (paroxysmal atrial tachycardia) Brief PSVT up to 20 beats noted in the past Surgical History Surgical History Aortic valve replaced (08/2017) 21 mm magna pericardial tissue valve with septal myomectomy by Dr. Sebastian and [facility] August 2017 History of left hip replacement (2004) History of left knee replacement (2016) History of total right knee replacement (2005) Hx of CABG 10/[address] Sebastina I [facility]. MCKEON to the Left anterior descending, SVG to OM, SVG to PDA. Family History Family History Sibling Hx of CABG Diabetes mellitus Peripheral vascular disease Sibling Hx of CABG Mother Hypertension Heart disease cad Father Cardiac arrest Coded during open heart surgery after prior cardiac cath CAD (coronary artery disease) Other Family history of congenital heart disease Social History Social History Social History: , daughter a physician, going into family medicine. Smoking status: Never smoker Alcohol intake: never Substance use: never Lack of Transportation: No Lack of Food: Never True Current Housing: I Have Housing Concerned About Future Housing: No Difficulty Paying Gas/Electric Bills: No Difficulty Paying for Meds: No Currently Unemployed: No Education: Bachelor's Degree Difficulty w/ Childcare or Family Care: No Living arrangements: with family Occupation/Education:
[2023-03-08] MEDS: diazePAM INJ (*CRX) 10 MG/2 ML SYRINGE 2 MG IV PUSH (11:24)
[2023-03-08] MEDS: HYDROcodone/acetaminophen (*CRX) 5-325 MG TABLET 1 TAB PO (11:24)
[2023-03-08] MEDS: methylPREDNISolone SOD SUCC 125 MG VIAL IV PUSH (11:25)
[2023-03-08 11:28] LABS: Basophils Percent Auto 0.4 % (0.2-1.2); Eosinophils Absolute Auto 0.1 K/mm3 (0-0.3); Eosinophils Percent Auto 1.3 % (0-4.4); Hematocrit 43.6 % (37.0-47.0); Hemoglobin 13.4 g/dL (12.0-15.0); Immature Granulocyte Absolute 0.03 K/mm3 (0.00-0.031); Immature Granulocyte Percent A 0.4 % (0-0.5); Lymphocytes Absolute Auto 1.02 K/mm3 (0.9-3.2); Lymphocytes Percent Auto 12.5 % (18.3-44.2); Mean Corpuscular HGB Conc 30.7 g/dl (32-36); Mean Corpuscular Hemoglobin 28.7 pg (26-34); Mean Corpuscular Volume 93.4 fl (80-100); Mean Platelet Volume 10.1 fl (7.4-10.4); Monocytes Absolute Auto 1.1 K/mm3 (0.1-0.6); Monocytes Percent Auto 13.5 % (2.6-8.5); Neutrophils Absolute Auto 5.9 K/mm3 (1.3-6.7); Neutrophils Percent Auto 71.9 % (45.5-73.1); Platelet Count Result 194 k/mm3 (150-375); Red Blood Count 4.67 M/mm3 (4.2-5.4); Red Cell Distribution Width 13.8 % (11.5-14.5); White Blood Count 8.2 K/mm3 (4.5-10.0)
[2023-03-08 11:34] LABS: Appearance Urine Cloudy (Clear); Bacteria Urine None Seen /hpf; Bilirubin Urine Negative (Negative); Blood Urine Negative (Negative); Color Urine Yellow (Yellow); Glucose Urine UA Negative (Negative); Ketones Urine Negative (Negative); Leukocyte Esterase Ur 2+ LEU/UL (Negative); Nitrate Urine Negative (Negative); Non Pathogenic Casts 0-2; Protein Urine Negative (Negative); RBC Urine 0-2 /hpf (0-2); Specific Grav Ur 1.019 (1.001-1.035); Squamous Epithelial Cell Urine Occasional /hpf (Few); Urobilinogen Urine 0.2 mg/dL (<2.0)
[2023-03-08 11:39] LABS: Add Urine Microscopic? YES
[2023-03-08 11:40] LABS: Alanine Aminotransferase 43 U/L (6-35); Albumin Level 4.4 g/dL (3.5-5.1); Alkaline Phosphatase 93 U/L (38-126); Anion Gap 10 mmol/L (8-16); Aspartate Amino Transferase 44 U/L (14-36); Bilirubin,Total 0.6 mg/dL (0.2-1.3); Blood Urea Nitrogen 26 mg/dL (7-17); Calcium 9.6 mg/dL (8.4-10.2); Carbon Dioxide 30 mmol/L (22-30); Chloride 99 mmol/L (98-107); Estimated CRCL calculation 49 ml/min; Estimated Glomerular Filt Rate > 60; Glucose 100 mg/dL (65-110); Sodium 139 mmol/L (137-145)
[2023-03-08 11:50] VITALS: BP 157/85; PULSE 61; RESP 18; O2SAT 100
--- NOTE | 2023-03-08 12:36 | ECG_ITS ---
Measurements Intervals [facility] Rate: 67 P: 54 PA: 199 QRS: -52 QRSD: 153 T: 91 QT: 482 QTc: 511 Interpretive Statements SINUS RHYTHM LEFT AXIS DEVIATION POSSIBLE LEFT ATRIAL ENLARGEMENT LEFT BUNDLE BRANCH BLOCK ABNORMAL ECG COMPARED TO ECG 12/17/2020 17:22:05 NO SIGNIFICANT CHANGES Electronically Signed On 03-08-2023 16:41:52 MODELING ANALYST by Vinnie Frye D.O.
[2023-03-08 13:07] LABS: Troponin I < 0.012 ng/mL (0.000-0.034)
== END 2023-03-08 14:46 | disposition home or self-care (01) ==
PROVIDERS: Emergency Provider Physician Assistant; PCP Family Medicine Adolescent Medicine
DX: M54.6 Pain in thoracic spine (principal); R82.998 Other abnormal findings in urine; R94.31 Abnormal electrocardiogram [ECG] [EKG]; I25.10 Atherosclerotic heart disease of native coronary artery without angina pectoris; I10 Essential (primary) hypertension; E78.5 Hyperlipidemia, unspecified
CPT/HCPCS: 36415; 74177; 80053; 81001; 84484; 85025; 87086; 93005; 96374; 96375; 99284; A9270; J2930; J3360; Q9967